=== PATIENT | female | born 1990 | race Hispanic/Latino ===

== ENCOUNTER 2020-05-27 17:14 | Emergency (ER) | payer BC, SELFPAY ==
--- NOTE | ~2020-05-27 | XR_ITS ---
EXAMINATION: XR chest 1V portable INDICATION: Shortness of breath, cough, exposure to COVID TECHNIQUE: Portable AP chest at 1815 hours COMPARISON: None available FINDINGS: There are minimal airspace opacities of the right lower lung zone. There is no pleural effu jeffrey or pneumothorax. The cardiomediastinal silhouette is normal. IMPRESSION: 1. Minimal airspace opacities of the right lung base, consistent with atelectasis versus pneumonia. Reviewed, dictated and finalized at location A. IMPRESSION: 1. Minimal airspace opacities of the right lung base, consistent with atelectas is versus pneumonia.
[2020-05-27 17:21] VITALS: BP 138/91; PULSE 92; RESP 15; TEMP 36.8; O2SAT 99
[2020-05-27 17:25] VITALS: PULSE 85
--- NOTE | 2020-05-27 17:37 | ED.SOB ---
HPI - SOB/Dyspnea General Chief Complaint: Shortness of Breath/Dyspnea Stated Complaint: sob Time Seen by Provider: 05/27/20 17:19 Source: patient Mode of arrival: ambulatory Limitations: no limitations History of Present Illness HPI Narrative: This is a 29 year old female that presents to the ER for shortness of breath x 3 days. Reports her brother was recently diagnosed with coronavirus. Reports mild congestion and cough. Also reports a tightness in her chest that has been constant for the last couple days. Denies fever. Related Data Allergies Allergy/AdvReac Type Severity Reaction Status Date / Time No Known Allergies Allergy Verified 05/27/20 17:26 Review of Systems Review of Systems: Narrative: CONSTITUTIONAL: Denies fever ENT: Reports congestion, sore throat CARDIOVASCULAR: Reports chest pain RESPIRATORY: Reports cough and dyspnea. All systems reviewed & are unremarkable except as noted in HPI and below PMFSH Social History Social History Smoking status: Never smoker Alcohol intake: current Exam Narrative: Exam Narrative: GENERAL: Well-appearing, obese, and in no acute distress. HEAD: Normocephalic, atraumatic. EYES: EOMI. ENT: Nares clear, no rhinorrhea or epistaxis. Mucous membranes moist. Oropharynx without tonsillar hypertrophy exudate or other lesions. Bilateral TMs pearly cotton non-bulging NECK: Supple. No adenopathy or masses. CHEST: Clear to auscultation. No respiratory distress. No wheezes rales or rhonchi HEART: Regular rate and rhythm. No murmur heard. Normal peripheral pulses. EXTREMITIES: Normal range of motion. No edema. SKIN: Warm, dry, no rash. NEURO: No focal deficits. Alert and oriented x3. PSYCH: Normal mood and affect Course Vital Signs Vital signs: Vital Signs Temperature 98.2 F 05/27/20 17:21 Pulse Rate 92 05/27/20 17:21 Respiratory Rate 15 05/27/20 17:21 Blood Pressure 138/91 H 05/27/20 17:21 Pulse Oximetry 99 05/27/20 17:21 Temperature 98.2 F 05/27/20 17:21 Pulse Rate 82 05/27/20 19:39 Respiratory Rate 22 H 05/27/20 19:39 Blood Pressure 123/80 06/26/20 19:39 Pulse Oximetry 99 05/27/20 19:39 MDM - SOB/Dyspnea MDM Narrative Medical decision making narrative: Patient presents the emergency department for cough and shortness of breath. Reports her brother was recently diagnosed with coronavirus. Patient is afebrile and nontoxic-appearing. Normal oxygen saturation on room air. CBC with mild leukocytosis to 13.4. Metabolic panel is without acute findings. D-dimer is not elevated. Troponin is negative. EKG without concerning changes. Chest x-ray with minimal airspace opacities in the right lung base. SARS-CoV-2 sent. Patient will be started on oral antibiotics. Oxygen saturation has remained normal on room air throughout visit in the ED. Patient stable and felt appropriate for further outpatient evaluation. She is to follow-up with her primary care doctor. She was given warnings to return to the ER Lab Data Attestation: I reviewed the patient's lab results. Result diagrams: 05/27/20 17:51 05/27/20 17:51 Labs: Lab Results 05/27/20 05/27/20 05/27/20 Range/Units 17:51 17:51 17:51 WBC 13.4 H (4.5-10.0) K/mm3 RBC 5.30 (4.2-5.4) M/mm3 Hgb 14.8 (12.0-15.0) g/dL Hct 43.5 (37.0-47.0) % MCV 82.1 (80-100) fl MCH 27.9 (26-34) pg MCHC 34.0 (32-36) g/dl RDW 12.7 (11.5-14.5) % Plt Count 231 (150-375) k/mm3 MPV 11.2 H (7.4-10.4) fl Immature Gran % (Auto) 0.5 (0-0.5) % Neut % (Auto) 61.2 (45.5-73.1) % Lymph % (Auto) 27.6 (18.3-44.2) % Miller % (Auto) 7.5 (2.6-8.5) % Eos % (Auto) 2.9 (0-4.4) % Baso % (Auto) 0.3 (0.2-1.2) % Lymph # (Auto) 3.70 H (0.9-3.2) K/mm3 Miller # (Auto) 1.0 H (0.1-0.6) K/mm3 Eos # (Auto) 0.4 H (0-0.3) K/mm3 Baso # (Auto) 0.0 (0.0-0.1) K/mm3 A
[2020-05-27 17:58] VITALS: BP 111/72; PULSE 90; RESP 18; O2SAT 99
[2020-05-27 18:00] LABS: Basophils Percent Auto 0.3 % (0.2-1.2); Eosinophils Absolute Auto 0.4 K/mm3 (0-0.3); Eosinophils Percent Auto 2.9 % (0-4.4); Hematocrit 43.5 % (37.0-47.0); Hemoglobin 14.8 g/dL (12.0-15.0); Immature Granulocyte Absolute 0.07 K/mm3 (0.00-0.031); Immature Granulocyte Percent A 0.5 % (0-0.5); Lymphocytes Percent Auto 27.6 % (18.3-44.2); Mean Corpuscular Hemoglobin 27.9 pg (26-34); Mean Corpuscular Volume 82.1 fl (80-100); Mean Platelet Volume 11.2 fl (7.4-10.4); Monocytes Percent Auto 7.5 % (2.6-8.5); Neutrophils Absolute Auto 8.2 K/mm3 (1.3-6.7); Neutrophils Percent Auto 61.2 % (45.5-73.1); Platelet Count Result 231 k/mm3 (150-375); Red Cell Distribution Width 12.7 % (11.5-14.5); White Blood Count 13.4 K/mm3 (4.5-10.0)
[2020-05-27 18:10] LABS: Lactic Acid Reflex 1.1 mmol/L (0.7-2.1)
[2020-05-27 18:14] LABS: Alanine Aminotransferase 24 U/L (4-35); Albumin Level 4.3 g/dL (3.5-5.1); Alkaline Phosphatase 99 U/L (38-126); Aspartate Amino Transferase 25 U/L (14-36); Bilirubin,Total 0.1 mg/dL (0.2-1.3); Blood Urea Nitrogen 13 mg/dL (7-17); CRP 1.8 mg/dL (<1.0); Calcium 9.1 mg/dL (8.4-10.2); Carbon Dioxide 25 mmol/L (22-30); Chloride 102 mmol/L (98-107); Estimated CRCL calculation 118 ml/min; Estimated Glomerular Filt Rate > 60; Glucose 133 mg/dL (65-105); Lactate Dehydrogenase 381 U/L (313-618); Potassium 3.9 mmol/L (3.4-5.0); Sodium 135 mmol/L (137-145)
[2020-05-27 18:23] LABS: Troponin I < 0.012 ng/mL (0.000-0.034)
[2020-05-27 18:24] LABS: D Dimer 0.27 ug/mL (<0.48)
--- NOTE | 2020-05-27 19:16 | ECG_ITS ---
Measurements Intervals [place] Rate: 79 P: 41 WV: 135 QRS: 0 QRSD: 77 T: 23 QT: 361 QTc: 416 Interpretive Statements SINUS RHYTHM VOLTAGE CRITERIA FOR LVH MINIMAL Q WAVES- HIGH LATERAL LEADS BORDERLINE ECG Electronically Signed On 05-28-2020 7:34:30 CDT by Jeyson Gurrola D.O.
[2020-05-27 19:39] VITALS: BP 123/80; PULSE 82; RESP 22; O2SAT 99
[2020-05-27 20:23] VITALS: BP 112/77; PULSE 101; RESP 29; O2SAT 98
[2020-05-28 13:53] LABS: SARS-CoV-2 RNA PCR Negative
== END 2020-05-27 20:24 | disposition home or self-care (01) ==
PROVIDERS: Physician Assistant; Emergency Provider Family Medicine; PCP Emergency Medicine
DX: J18.9 Pneumonia, unspecified organism (principal); Z20.828 Contact with and (suspected) exposure to other viral communicable diseases
CPT/HCPCS: 36415; 71045; 80053; 83605; 83615; 84484; 85025; 85380; 86140; 87635; 93005; 99284; C9803; U0003

== ENCOUNTER 2020-06-10 18:16 | Outpatient (CLI) | payer BC, OTHER, SELFPAY ==
--- NOTE | ~2020-06-10 | XR_ITS ---
EXAMINATION: XR chest 2V 06/10/2020 18:46 INDICATION: Cough and shortness of breath. History of pneumonia. PROCEDURE: 2 view chest COMPARISON: 05/27/2020 FINDINGS: The lungs are clear. The cardiomediastinal silhouette is within normal limits. There are no pleural effusions. There is no pneumothorax suspected. IMPRESSION: 1: NO ACUTE CARDIOPULMONARY DISEASE. Reviewed, dictated and finalized at location A.
== END 2020-06-10 18:17 | disposition home or self-care (01) ==
LOC: ANHIMG 18:20
PROVIDERS: PCP Emergency Medicine; Visit Provider Emergency Medicine
DX: R05 Cough (principal); R06.02 Shortness of breath; Z87.01 Personal history of pneumonia (recurrent)
CPT/HCPCS: 71046

== ENCOUNTER 2020-06-23 15:06 | Outpatient (CLI) | payer BC, OTHER, SELFPAY ==
[2020-06-23 15:23] LABS: Basophils Percent Auto 0.3 % (0.2-1.2); Eosinophils Absolute Auto 0.2 K/mm3 (0-0.3); Eosinophils Percent Auto 1.4 % (0-4.4); Hematocrit 40.7 % (37.0-47.0); Hemoglobin 13.8 g/dL (12.0-15.0); Immature Granulocyte Absolute 0.04 K/mm3 (0.00-0.031); Immature Granulocyte Percent A 0.4 % (0-0.5); Lymphocytes Absolute Auto 3.41 K/mm3 (0.9-3.2); Lymphocytes Percent Auto 32.5 % (18.3-44.2); Mean Corpuscular HGB Conc 33.9 g/dl (32-36); Mean Corpuscular Hemoglobin 27.5 pg (26-34); Mean Corpuscular Volume 81.2 fl (80-100); Mean Platelet Volume 11.4 fl (7.4-10.4); Monocytes Absolute Auto 0.7 K/mm3 (0.1-0.6); Monocytes Percent Auto 6.8 % (2.6-8.5); Neutrophils Absolute Auto 6.1 K/mm3 (1.3-6.7); Neutrophils Percent Auto 58.6 % (45.5-73.1); Platelet Count Result 234 k/mm3 (150-375); Red Blood Count 5.01 M/mm3 (4.2-5.4); Red Cell Distribution Width 12.4 % (11.5-14.5); White Blood Count 10.5 K/mm3 (4.5-10.0)
[2020-06-23 16:41] LABS: Alanine Aminotransferase 26 U/L (4-35); Albumin Level 4.5 g/dL (3.5-5.1); Alkaline Phosphatase 79 U/L (38-126); Anion Gap 14.5 mmol/L (7-16); Aspartate Amino Transferase 30 U/L (14-36); Bilirubin,Total 0.3 mg/dL (0.2-1.3); Blood Urea Nitrogen 17 mg/dL (7-17); CRP 2.5 mg/dL (<1.0); Calcium 9.7 mg/dL (8.4-10.2); Carbon Dioxide 22 mmol/L (22-30); Chloride 106 mmol/L (98-107); Estimated Glomerular Filt Rate > 60; Glucose 140 mg/dL (65-105); Potassium 3.5 mmol/L (3.4-5.0); Sodium 139 mmol/L (137-145)
[2020-06-23 16:44] LABS: Immunoglobulin A 289 mg/dL (70-400); Immunoglobulin G 1365 mg/dL (700-1600); Immunoglobulin M 87 mg/dL (40-230)
[2020-06-23 16:50] LABS: Erythrocyte Sedimentation Rate 17 mm/hr (0-20)
== END 2020-06-23 15:07 | disposition home or self-care (01) ==
PROVIDERS: PCP Emergency Medicine; Visit Provider Internal Medicine Hematology & Oncology
DX: D72.829 Elevated white blood cell count, unspecified (principal)
CPT/HCPCS: 36415; 80053; 82784; 85025; 85652; 86140; 88184

== ENCOUNTER 2020-11-11 08:38 | Emergency (ER) | payer OTHER, MEDICAID, SELFPAY ==
--- NOTE | ~2020-11-11 | US_ITS ---
EXAMINATION: US pelvic complete w TV DATE: 11/11/2020 11:44 INDICATION: Left ovarian cyst. TECHNIQUE: Multiple transabdominal and transvaginal sonographic images of the pelvis were obtained. COMPARISON: CT abdomen and pelvis 11/11/2020 FINDINGS: TRANSABDOMINAL ULTRASOUND: The uterus measures 9.0 x 3.3 x 3.2 cm. There is trace free fluid in the pelvis. TRANSVAGINAL ULTRASOUND: The endometrial complex measures 8 mm in thickness. The right ovary measures 2.0 x 2.0 x 1.9 cm. The left ovary measures 2.9 x 2.8 x 3.4 cm. There is a 2.6 cm dominant follicle in left ovary. There is normal vascular flow in the ovaries. IMPRESSION: 1. Normal pelvis. 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 [employer] IMPRESSION: 1. Normal pelvis.
--- NOTE | ~2020-11-11 | CT_ITS ---
EXAMINATION: CT abdomen pelvis w con DATE: 11/11/2020 10:55 INDICATION: Left abdominal pain. Blood in stool. TECHNIQUE: Computed tomography (CT) of the abdomen and pelvis was performed with 100 mL Omnipaque 350 intravenous contrast. Automated exposure control and iterative reconstruction technique were employe d. The dose-length product was 1293.56 mGy-cm. COMPARISON: CT abdomen and pelvis 02/26/2018 FINDINGS: The visualized portions of the lung bases are clear without pneumonia or pleural effusion. The heart size is normal. No pericardial effusion. The liver, gallbladder, spleen, pancreas, adrenal glands, and kidneys are normal. There is a 2.9 cm corpus luteum cyst in left ovary. There are no dila diana loops of bowel. The appendix is normal. There is trace pelvic ascites, likely physiologic. There are no pathologically enlarged lymph nodes. There is dextrocurvature of lumbar spine. IMPRESSION: 1. No specific etiology for the patient's symptoms. 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
[2020-11-11 08:43] VITALS: BP 120/79; PULSE 80; RESP 19; TEMP 37.3; O2SAT 98
[2020-11-11 09:02] LABS: Basophils Percent Auto 0.4 % (0.2-1.2); Eosinophils Absolute Auto 0.2 K/mm3 (0-0.3); Eosinophils Percent Auto 1.9 % (0-4.4); Hematocrit 42.9 % (37.0-47.0); Hemoglobin 14.8 g/dL (12.0-15.0); Immature Granulocyte Absolute 0.04 K/mm3 (0.00-0.031); Immature Granulocyte Percent A 0.4 % (0-0.5); Lymphocytes Absolute Auto 2.93 K/mm3 (0.9-3.2); Lymphocytes Percent Auto 26.4 % (18.3-44.2); Mean Corpuscular HGB Conc 34.5 g/dl (32-36); Mean Corpuscular Hemoglobin 28.5 pg (26-34); Mean Corpuscular Volume 82.5 fl (80-100); Mean Platelet Volume 10.9 fl (7.4-10.4); Monocytes Absolute Auto 0.7 K/mm3 (0.1-0.6); Monocytes Percent Auto 5.9 % (2.6-8.5); Neutrophils Absolute Auto 7.2 K/mm3 (1.3-6.7); Platelet Count Result 226 k/mm3 (150-375); Red Cell Distribution Width 12.5 % (11.5-14.5); White Blood Count 11.1 K/mm3 (4.5-10.0)
[2020-11-11 09:12] LABS: Prothrombin Time 13.6 Seconds (11.1-14.7)
[2020-11-11 09:13] LABS: Lipase 84 U/L (23-300)
[2020-11-11 09:13] LABS: Alanine Aminotransferase 34 U/L (4-35); Albumin Level 4.1 g/dL (3.5-5.1); Alkaline Phosphatase 81 U/L (38-126); Anion Gap 8 mmol/L (8-16); Aspartate Amino Transferase 31 U/L (14-36); Bilirubin,Total 0.5 mg/dL (0.2-1.3); Blood Urea Nitrogen 13 mg/dL (7-17); Calcium 8.8 mg/dL (8.4-10.2); Carbon Dioxide 24 mmol/L (22-30); Chloride 107 mmol/L (98-107); Estimated CRCL calculation 105 ml/min; Estimated Glomerular Filt Rate > 60; Glucose 101 mg/dL (65-105); Partial Thromboplastin Time 27.7 SECONDS (22.3-36.8); Potassium 4.3 mmol/L (3.4-5.0); Sodium 139 mmol/L (137-145)
[2020-11-11 09:17] LABS: Add Urine Microscopic? NO; Appearance Urine Clear (Clear); Bilirubin Urine Negative (Negative); Blood Urine Negative (Negative); Color Urine Yellow (Yellow); Glucose Urine UA Negative (Negative); Ketones Urine Negative (Negative); Leukocyte Esterase Ur Negative LEU/UL (Negative); Nitrate Urine Negative (Negative); Protein Urine Negative (Negative); Specific Grav Ur 1.017 (1.001-1.035); Urobilinogen Urine Negative mg/dL (<2.0)
--- NOTE | 2020-11-11 10:31 | ED.GIBLEED ---
HPI - GI Bleed General Chief complaint: GI Bleed Stated complaint: rectal bleeding Time Seen by Provider: 11/11/20 08:49 Source: patient Mode of arrival: ambulatory Limitations: no limitations History of Present Illness HPI Narrative: This is a 30 year old female that presents to the ER for blood in the stool x 5 days. Reports bright red blood with every bowel movement. Does report history of hemorrhoids. Reports she has had intermittent sharp abdominal pain on the left side. Denies fever, nausea, vomiting, diarrhea, or dysuria. Related Data Allergies Allergy/AdvReac Type Severity Reaction Status Date / Time No Known Allergies Allergy Verified 11/11/20 08:48 Review of Systems Review of Systems: Narrative: CONSTITUTIONAL: Denies fever GASTROINTESTINAL: Reports abdominal pain. Denies nausea, vomiting, or diarrhea. GENITOURINARY: Denies dysuria All systems reviewed & are unremarkable except as noted in HPI and below PMFSH Past Medical History Medical History (Updated 11/11/20 @ 12:02 by Diann Krishnan PA-C) Obesity, unspecified Residual hemorrhoidal skin tags Rhinitis, nonallergic Viral wart, unspecified Surgical History Surgical History No significant past surgical history Family History Family History Father Hypertension Family history of hearing loss Sibling Hypertension Mother Family history of malignant neoplasm Other Family history of arthritis Social History Social History Smoking status: Never smoker Alcohol intake: current Gender identity (if verbalized by the patient): Female Exam Narrative: Exam Narrative: GENERAL: Well-appearing, well-nourished, and in no acute distress. HEAD: Normocephalic, atraumatic. EYES: EOMI. CHEST: Clear to auscultation. No respiratory distress. No wheezes rales or rhonchi HEART: Regular rate and rhythm. No murmur heard. Normal peripheral pulses. ABDOMEN: Soft, nondistended, normal active bowel sounds. Tender to palpation in her left lower quadrant, without guarding. No CVA tenderness EXTREMITIES: Normal range of motion. No edema. SKIN: Warm, dry, no rash. NEURO: No focal deficits. Alert and oriented x3. PSYCH: Normal mood and affect RECTAL: No obvious external hemorrhoids or fissures. Hemoccult negative Course Vital Signs Vital signs: Vital Signs Temperature 99.1 F 11/11/20 08:43 Pulse Rate 80 11/11/20 08:43 Respiratory Rate 19 11/11/20 08:43 Blood Pressure 120/79 11/11/20 08:43 Pulse Oximetry 98 11/11/20 08:43 Temperature 99.1 F 11/11/20 08:43 Pulse Rate 80 11/11/20 08:43 Respiratory Rate 19 11/11/20 08:43 Blood Pressure 120/79 11/11/20 08:43 Pulse Oximetry 98 11/11/20 08:43 MDM - GI Bleed MDM Narrative Medical decision making narrative: Patient presents the emergency department for hematochezia x5 days. She is afebrile and nontoxic-appearing. Vitals are stable. Was also reporting some intermittent left-sided crampy lower abdominal pain. CBC with mild leukocytosis to 11.1. Metabolic panel without concerning findings. UA is normal. Bedside test is negative. CT scan of the abdomen and pelvis is without acute findings. Pelvic ultrasound is also without acute findings. Normal vascular flow to the ovary. Patient was updated on case findings. Does report history of hemorrhoids. Will be started on Anusol suppositories. She is to follow-up with GI. She was given warnings to return to the ER Lab Data Attestation: I reviewed the patient's lab results. Result diagrams: 11/11/20 08:56 11/11/20 08:56 Labs: Lab Results 11/11/20 11/11/20 11/11/20 Range/Units 08:56 08:56 08:56 WBC 11.1 H (4.5-10.0) K/mm3 RBC 5.20 (4.2-5.4) M/mm3 Hgb 14.8 (12.0-15.0) g/dL Hct 42.9 (37.0-47.0) % MC
[2020-11-11 12:16] VITALS: BP 138/84; PULSE 84; RESP 16; O2SAT 98
== END 2020-11-11 12:16 | disposition home or self-care (01) ==
PROVIDERS: Emergency Provider Emergency Medicine; PCP Emergency Medicine
DX: K92.1 Melena (principal); E66.9 Obesity, unspecified; Z68.25 Body mass index [BMI] 25.0-25.9, adult
CPT/HCPCS: 36415; 74177; 76830; 76856; 80053; 81003; 81025; 83690; 85025; 85610; 85730; 99284; Q9967

== ENCOUNTER 2021-01-09 13:28 | Emergency (ER) | payer OTHER, MEDICAID, SELFPAY ==
[2021-01-09] VITALS (25 sets, daily range): BP systolic 117–152; BP diastolic 65–99; PULSE 84–107; RESP 11–29; TEMP 36.4; O2SAT 95–100
--- NOTE | ~2021-01-09 | XR_ITS ---
EXAMINATION: XR chest 1V portable 01/09/2021 14:20 INDICATION: Cough PROCEDURE: AP portable chest COMPARISON: 06/10/2020 FINDINGS: The lungs are clear. The cardiomediastinal silhouette is within normal limits. There are no pleural effusions. There is no pneumothorax suspected. IMPRESSION: 1: NO ACUTE CARDIOPULMONARY DISEASE. 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 INE EDITOR
--- NOTE | ~2021-01-09 | CT_ITS ---
EXAMINATION: CT brain wo con DATE: 01/09/2021 15:08 INDICATION: Migraine headache. TECHNIQUE: Computed tomography (CT) of the head was performed without intravenous contrast. The mA wa s adjusted according to patient size. Iterative reconstruction technique was employed. The dose-lengt h product was 605.33 mGy-cm. COMPARISON: None FINDINGS: There is no intracranial hemorrhage, acute infarction, or abnormal intracranial mass lesion . The ventricles are normal in size. The paranasal sinuses are clear. The orbits are normal. The mast oid air cells are normal. IMPRESSION: 1. Normal brain. Reviewed, dictated and finalized at location A. DE CUISINE IMPRESSION: 1. Normal brain.
--- NOTE | 2021-01-09 13:42 | ECG_ITS ---
Measurements Intervals [place] Rate: 98 P: 39 VT: 104 QRS: -9 QRSD: 89 T: 36 QT: 293 QTc: 374 Interpretive Statements SINUS RHYTHM WITH SHORT VT INTERVAL POSSIBLE LEFT ATRIAL ENLARGEMENT DELAYED PRECORDIAL R/S TRANSITION POSSIBLE LEFT VENTRICULAR HYPERTROPHY BASELINE WANDER- II, III, AVR, AVL, AVF, V1-V2, V4 BORDERLINE ECG Electronically Signed On 01-09-2021 13:51:00 TECHNOLOGY INFUSION SPECIALIST by Jeyson Gurrola D.O.
--- NOTE | 2021-01-09 14:16 | ED.URI ---
HPI - URI/Sore Throat General Chief Complaint: Upper Respiratory Infection Stated Complaint: chest pain, sob Time Seen by Provider: 01/09/21 13:47 Source: patient Mode of arrival: ambulatory Limitations: no limitations History of Present Illness HPI Narrative: This is a 30 year old female that presents to the ER for chest pain and shortness of breath x 1 week. Associated with congestion and sinus pain. Reports associated migraines that she has been having over the last year. She was seen at urgent care for this 2 days ago and started on Augmentin for an ear infection. Reports she had a rapid negative covid at that time. Denies fever, sore throat, or lower extremity edema. Related Data Home Medications Medication Instructions Recorded Confirmed albuterol sulfate [Ventolin HFA] INHALATION 01/09/21 amoxicillin-pot clavulanate tablet 01/09/21 01/09/21 benzonatate mg PO 01/09/21 nystatin TOPICAL 01/09/21 Allergies Allergy/AdvReac Type Severity Reaction Status Date / Time No Known Allergies Allergy Verified 01/09/21 13:57 Review of Systems Review of Systems: Narrative: CONSTITUTIONAL: Denies fever ENT: Reports rhinorrhea, congestion. Denies sore throat CARDIOVASCULAR: Reports chest pain RESPIRATORY: Reports cough and dyspnea. NEUROLOGIC: Denies headache, numbness, or weakness. All systems reviewed & are unremarkable except as noted in HPI and below PMFSH Past Medical History Medical History (Updated 01/09/21 @ 16:21 by Diann Krishnan PA-C) Hemorrhoid Obesity, unspecified Rectal bleeding Residual hemorrhoidal skin tags Rhinitis, nonallergic Viral wart, unspecified Surgical History Surgical History No significant past surgical history Family History Family History Father Hypertension Family history of hearing loss Sibling Hypertension Mother Family history of malignant neoplasm Other Family history of arthritis Social History Social History Smoking status: Never smoker Alcohol intake: current Gender identity (if verbalized by the patient): Female Exam Narrative: Exam Narrative: GENERAL: Well-appearing, well-nourished, and in no acute distress. HEAD: Normocephalic, atraumatic. EYES: PERRLA and EOMI. ENT: Nares clear, no rhinorrhea or epistaxis. Mucous membranes moist. Oropharynx without tonsillar hypertrophy exudate or other lesions. Bilateral TMs pearly cotton non-bulging NECK: Supple. No adenopathy or masses. CHEST: Clear to auscultation. No respiratory distress. No wheezes rales or rhonchi HEART: Regular rate and rhythm. No murmur heard. Normal peripheral pulses. EXTREMITIES: Normal range of motion. No edema. Strength equal in bilateral upper and lower extremities (5/5) SKIN: Warm, dry, no rash. NEURO: No focal deficits. Alert and oriented x3. cN II-XII grossly intact PSYCH: Normal mood and affect Course Vital Signs Vital signs: Vital Signs Temperature 97.5 F L 01/09/21 13:37 Pulse Rate 107 H 01/09/21 13:37 Respiratory Rate 20 01/09/21 13:37 Blood Pressure 152/99 H 01/09/21 13:37 Pulse Oximetry 100 01/09/21 13:37 Temperature 97.5 F L 01/09/21 13:37 Pulse Rate 103 H 01/09/21 14:01 Respiratory Rate 24 H 01/09/21 14:01 Blood Pressure 130/82 01/09/21 14:01 Pulse Oximetry 98 01/09/21 14:01 MDM - URI/Sore Throat MDM Narrative Medical decision making narrative: Patient presents to the emergency department for chest pain and shortness of breath noted over the last week. Was also reporting cold symptoms. She is afebrile and nontoxic-appearing. Mildly tachycardic upon arrival, this normalized without intervention. CBC with mild leukocytosis to 13.8, this appears to be chronic for patient. Reports she has been evaluated for this before. Metabolic panel without concerning findings.
[2021-01-09 14:31] LABS: Basophils Percent Auto 0.2 % (0.2-1.2); Eosinophils Absolute Auto 0.2 K/mm3 (0-0.3); Eosinophils Percent Auto 1.2 % (0-4.4); Hematocrit 45.3 % (37.0-47.0); Hemoglobin 15.9 g/dL (12.0-15.0); Immature Granulocyte Absolute 0.05 K/mm3 (0.00-0.031); Immature Granulocyte Percent A 0.4 % (0-0.5); Lymphocytes Absolute Auto 2.79 K/mm3 (0.9-3.2); Lymphocytes Percent Auto 20.2 % (18.3-44.2); Mean Corpuscular HGB Conc 35.1 g/dl (32-36); Mean Corpuscular Hemoglobin 28.4 pg (26-34); Mean Platelet Volume 10.9 fl (7.4-10.4); Monocytes Absolute Auto 0.6 K/mm3 (0.1-0.6); Monocytes Percent Auto 4.2 % (2.6-8.5); Neutrophils Absolute Auto 10.2 K/mm3 (1.3-6.7); Neutrophils Percent Auto 73.8 % (45.5-73.1); Platelet Count Result 249 k/mm3 (150-375); Red Blood Count 5.59 M/mm3 (4.2-5.4); Red Cell Distribution Width 12.3 % (11.5-14.5); White Blood Count 13.8 K/mm3 (4.5-10.0)
[2021-01-09 14:44] LABS: Prothrombin Time 13.3 Seconds (11.1-14.7)
[2021-01-09 14:45] LABS: Partial Thromboplastin Time 27.5 SECONDS (22.3-36.8)
[2021-01-09 14:48] LABS: D Dimer 0.27 ug/mL (<0.48)
[2021-01-09 15:12] LABS: Alanine Aminotransferase 25 U/L (4-35); Albumin Level 4.5 g/dL (3.5-5.1); Alkaline Phosphatase 81 U/L (38-126); Anion Gap 10 mmol/L (8-16); Aspartate Amino Transferase 29 U/L (14-36); Bilirubin,Total 0.5 mg/dL (0.2-1.3); Blood Urea Nitrogen 14 mg/dL (7-17); Calcium 9.2 mg/dL (8.4-10.2); Carbon Dioxide 23 mmol/L (22-30); Chloride 105 mmol/L (98-107); Estimated CRCL calculation 154 ml/min; Estimated Glomerular Filt Rate > 60; Glucose 182 mg/dL (65-105); Lactate Dehydrogenase 372 U/L (313-618); Potassium 3.7 mmol/L (3.4-5.0); Sodium 138 mmol/L (137-145)
[2021-01-09 16:07] LABS: Troponin I < 0.012 ng/mL (0.000-0.034)
[2021-01-09 23:24] LABS: SARS-CoV-2 RNA PCR Negative
== END 2021-01-09 16:42 | disposition home or self-care (01) ==
PROVIDERS: Physician Assistant; Emergency Provider Emergency Medicine; PCP Emergency Medicine
DX: R07.9 Chest pain, unspecified (principal); R06.02 Shortness of breath; Z20.822 Contact with and (suspected) exposure to COVID-19; E66.9 Obesity, unspecified; Z68.38 Body mass index [BMI] 38.0-38.9, adult
CPT/HCPCS: 36415; 70450; 71045; 80053; 82728; 83615; 84484; 85025; 85380; 85610; 85730; 87804; 93005; 99284; C9803; U0003; U0005

== ENCOUNTER 2021-01-22 15:23 | Emergency (ER) | payer OTHER, MEDICAID, SELFPAY ==
--- NOTE | ~2021-01-22 | CT_ITS ---
EXAMINATION: CT abdomen pelvis w con EXAM DATE: 01/22/2021 17:57 INDICATION: Left lower quadrant pain. TECHNIQUE: Spiral CT of the abdomen and pelvis was performed following intravenous injection of 100 m L Omnipaque 350. Axial, coronal and sagittal images were reviewed. The dose-length product (DLP) fo r this examination was 1260.95 mGy-cm. The exposure was tailored according to patient size (auto mA exposure control), and iterative reconstruction (ASIR) was used as additional dose reduction techniqu e. Comparison is made to prior examination from 11/11/2020. FINDINGS: The liver, spleen, adrenal glands and pancreas are unremarkable. Gallbladder is unremarkab le. No biliary obstruction. Portal and splenic veins are patent. Kidneys enhance symmetrically. T here is no hydronephrosis. The uterus and ovaries are unremarkable, no adnexal mass. The bladder i s collapsed at time of imaging limiting evaluation. There is no retroperitoneal or pelvic lymphadeno arline. The appendix is normal. The stomach and small bowel are unremarkable. There is expected amount of c olonic stool. No free intraperitoneal gas. The heart is normal in size. There are no pericardial or pleural effusions. The lung bases are unremarkable. There are no osteoblastic or osteolytic les ions identified. IMPRESSION: 1. No acute intra-abdominal findings. 0 Reviewed, dictated and finalized at location A. OR RESEARCH SCIENTIST
[2021-01-22 15:26] VITALS: BP 118/86; PULSE 88; RESP 20; TEMP 36.1; O2SAT 97
--- NOTE | 2021-01-22 16:16 | ED.ABDPAIN ---
HPI - Abdominal Pain General Chief Complaint: Abdominal Pain Stated Complaint: abdominal pain Time Seen by Provider: 01/22/21 15:32 Source: patient Mode of arrival: ambulatory Limitations: no limitations History of Present Illness HPI narrative: A 30-year-old female comes into the emergency department today with complaints of pain in her abdomen. Patient states that she feels it primarily over on the left-hand side. Patient states her symptoms started with painful urination, burning and frequency of urine. She states that this now has gone up to her left side. Patient is concerned she may have a kidney infection. Related Data Home Medications Medication Instructions Recorded Confirmed fluticasone propionate INTRANASAL 01/22/21 Allergies Allergy/AdvReac Type Severity Reaction Status Date / Time No Known Allergies Allergy Verified 01/22/21 15:28 Review of Systems Review of Systems: Narrative: CONSTITUTIONAL: Denies fever, chills, or sweats. EYES: Denies visual changes, redness, or discharge. ENT: Denies rhinorrhea, congestion, sore throat, or otalgia. CARDIOVASCULAR: Denies chest pain, palpitations, or edema. RESPIRATORY: Denies cough or dyspnea. GASTROINTESTINAL: Denies abdominal pain, nausea, vomiting, or diarrhea. GENITOURINARY: Endorses dysuria, hematuria and flank pain. SKIN: Denies rash or itching. MUSCULOSKELETAL: Denies back pain, joint pain, or myalgia. NEUROLOGIC: Denies headache, numbness, dizziness, or weakness. PSYCHIATRIC: Denies anxiety or depression. [facility] Past Medical History Medical History Hemorrhoid Obesity, unspecified Rectal bleeding Residual hemorrhoidal skin tags Rhinitis, nonallergic Viral wart, unspecified Surgical History Surgical History No significant past surgical history Family History Family History Father Hypertension Family history of hearing loss Sibling Hypertension Mother Family history of malignant neoplasm Other Family history of arthritis Social History Social History Smoking status: Never smoker Alcohol intake: current Gender identity (if verbalized by the patient): Female Exam Narrative: Exam Narrative: GENERAL: Well-appearing, well-nourished, and in no acute distress. HEAD: Normocephalic, atraumatic. EYES: PERRLA and EOMI. ENT: Nares clear, no rhinorrhea or epistaxis. Mucous membranes moist. NECK: Supple. No adenopathy or masses. No carotid bruits or JVD CHEST: Clear to auscultation. No respiratory distress. No wheezes rales or rhonchi HEART: Regular rate and rhythm. No murmur heard. Normal peripheral pulses. ABDOMEN: Soft, nondistended, normal active bowel sounds. TTP to LUQ and LLQ. Positive Tramaine's punch on the left. CVA tenderness. EXTREMITIES: Normal range of motion. No edema. SKIN: Warm, dry, no rash. NEURO: No focal deficits. Alert and oriented x3. PSYCH: Normal mood and affect. Course Reevaluation(s) Reevaluation #1: Reevaluated patient provided care update. She is resting comfortably, notes that she is feeling somewhat better. We will plan for discharge at this time. Time: 18:09 Vital Signs Vital signs: Vital Signs Temperature 36.1 C L 01/22/21 15:26 Pulse Rate 88 01/22/21 15:26 Respiratory Rate 20 01/22/21 15:26 Blood Pressure 118/86 01/22/21 15:26 Pulse Oximetry 97 01/22/21 15:26 Temperature 36.1 C L 01/22/21 15:26 Pulse Rate 88 01/22/21 15:26 Respiratory Rate 20 01/22/21 15:26 Blood Pressure 118/86 01/22/21 15:26 Pulse Oximetry 97 01/22/21 15:26 MDM - Abdominal Pain MDM Narrative Medical decision making narrative: In brief this 30-year-old female came into the emergency department with complaints of abdominal pain, dysuria and frequency of urination. On exam she d
[2021-01-22] MEDS: ONDANSETRON INJ 4 MG/2 ML VIAL IV PUSH (16:32)
[2021-01-22] MEDS: KETOROLAC 30 MG/ML VIAL (*BKC) 15 MG IV PUSH (16:33)
[2021-01-22] MEDS: MORPHINE SULFATE (*CRX) 4 MG/ML INJ IV PUSH (16:34)
[2021-01-22 16:41] LABS: Basophils Absolute Auto 0.1 K/mm3 (0.0-0.1); Basophils Percent Auto 0.3 % (0.2-1.2); Eosinophils Absolute Auto 0.2 K/mm3 (0-0.3); Eosinophils Percent Auto 1.3 % (0-4.4); Hematocrit 42.2 % (37.0-47.0); Hemoglobin 14.5 g/dL (12.0-15.0); Immature Granulocyte Absolute 0.08 K/mm3 (0.00-0.031); Immature Granulocyte Percent A 0.5 % (0-0.5); Lymphocytes Absolute Auto 3.66 K/mm3 (0.9-3.2); Lymphocytes Percent Auto 23.3 % (18.3-44.2); Mean Corpuscular HGB Conc 34.4 g/dl (32-36); Mean Corpuscular Hemoglobin 27.9 pg (26-34); Mean Corpuscular Volume 81.3 fl (80-100); Monocytes Absolute Auto 0.9 K/mm3 (0.1-0.6); Monocytes Percent Auto 5.8 % (2.6-8.5); Neutrophils Absolute Auto 10.8 K/mm3 (1.3-6.7); Neutrophils Percent Auto 68.8 % (45.5-73.1); Platelet Count Result 266 k/mm3 (150-375); Red Blood Count 5.19 M/mm3 (4.2-5.4); Red Cell Distribution Width 12.4 % (11.5-14.5); White Blood Count 15.7 K/mm3 (4.5-10.0)
[2021-01-22 16:47] LABS: Add Urine Microscopic? YES; Appearance Urine Cloudy (Clear); Bacteria Urine Trace /hpf; Bilirubin Urine Negative (Negative); Blood Urine 1+ (Negative); Color Urine Yellow (Yellow); Glucose Urine UA Negative (Negative); Ketones Urine Negative (Negative); Leukocyte Esterase Ur 3+ LEU/UL (Negative); Mucus Urine Rare /lpf; Nitrate Urine Negative (Negative); Protein Urine 2+ mg/dL (Negative); RBC Urine 21-50 /hpf (0-2); Specific Grav Ur 1.023 (1.001-1.035); Squamous Epithelial Cell Urine Many /hpf (Few); Urobilinogen Urine Negative mg/dL (<2.0); WBC Urine >75 /hpf
[2021-01-22 16:54] LABS: Alanine Aminotransferase 23 U/L (4-35); Albumin Level 4.2 g/dL (3.5-5.1); Alkaline Phosphatase 91 U/L (38-126); Anion Gap 8 mmol/L (8-16); Aspartate Amino Transferase 25 U/L (14-36); Bilirubin,Total 0.4 mg/dL (0.2-1.3); Blood Urea Nitrogen 15 mg/dL (7-17); Calcium 9.1 mg/dL (8.4-10.2); Carbon Dioxide 25 mmol/L (22-30); Chloride 107 mmol/L (98-107); Estimated CRCL calculation 122 ml/min; Estimated Glomerular Filt Rate > 60; Glucose 99 mg/dL (65-105); Lipase 96 U/L (23-300); Potassium 3.7 mmol/L (3.4-5.0); Sodium 140 mmol/L (137-145)
== END 2021-01-22 18:21 | disposition home or self-care (01) ==
PROVIDERS: Emergency Provider Emergency Medicine; PCP Emergency Medicine
DX: N10 Acute pyelonephritis (principal); E66.9 Obesity, unspecified; Z68.41 Body mass index [BMI] 40.0-44.9, adult
CPT/HCPCS: 36415; 74177; 80053; 81001; 83690; 85025; 87077; 87086; 87088; 87186; 96374; 96375; 99284; A9270; J1885; J2270; J2405; Q9967

== ENCOUNTER 2021-01-24 17:12 | Emergency (ER) | payer OTHER, MEDICAID, SELFPAY ==
--- NOTE | ~2021-01-24 | CT_ITS ---
EXAMINATION: CT abdomen pelvis w con EXAM DATE: 01/25/2021 00:39 INDICATION: Flank pain, abdominal pain. TECHNIQUE: Spiral CT of the abdomen and pelvis was performed following intravenous injection of 100 m L Omnipaque 350. Axial, coronal and sagittal images were reviewed. The dose-length product (DLP) fo r this examination was 1165.90 mGy-cm. The exposure was tailored according to patient size (auto mA exposure control), and iterative reconstruction (ASIR) was used as additional dose reduction techniqu e. Comparison is made to prior examination from 01/22/2021. FINDINGS: The liver, spleen, adrenal glands and pancreas are unremarkable. Gallbladder is unremarkab le. No biliary obstruction. Portal and splenic veins are patent. Kidneys enhance symmetrically. T here is no hydronephrosis. The uterus is unremarkable. The bladder is unremarkable. There is no retroperitoneal or pelvic lymphadenopathy. The appendix is normal. The stomach and small bowel are unremarkable. There is expected amount of c olonic stool. No free intraperitoneal gas. The heart is normal in size. There are no pericardial or pleural effusions. The lung bases are unremarkable. Several punctate pelvic bone islands. IMPRESSION: 1. No acute intra-abdominal findings. 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
[2021-01-24 17:31] VITALS: BP 146/98; PULSE 80; RESP 20; TEMP 36.2; O2SAT 99
[2021-01-24 17:55] LABS: Basophils Absolute Auto 0.1 K/mm3 (0.0-0.1); Basophils Percent Auto 0.5 % (0.2-1.2); Eosinophils Absolute Auto 0.2 K/mm3 (0-0.3); Eosinophils Percent Auto 1.5 % (0-4.4); Hematocrit 44.8 % (37.0-47.0); Hemoglobin 15.1 g/dL (12.0-15.0); Immature Granulocyte Absolute 0.04 K/mm3 (0.00-0.031); Immature Granulocyte Percent A 0.4 % (0-0.5); Lymphocytes Percent Auto 32.4 % (18.3-44.2); Mean Corpuscular HGB Conc 33.7 g/dl (32-36); Mean Corpuscular Hemoglobin 27.7 pg (26-34); Mean Corpuscular Volume 82.1 fl (80-100); Mean Platelet Volume 10.8 fl (7.4-10.4); Monocytes Absolute Auto 0.6 K/mm3 (0.1-0.6); Monocytes Percent Auto 5.6 % (2.6-8.5); Neutrophils Absolute Auto 6.6 K/mm3 (1.3-6.7); Neutrophils Percent Auto 59.6 % (45.5-73.1); Platelet Count Result 257 k/mm3 (150-375); Red Blood Count 5.46 M/mm3 (4.2-5.4); Red Cell Distribution Width 12.3 % (11.5-14.5); White Blood Count 11.1 K/mm3 (4.5-10.0)
[2021-01-24 18:01] LABS: Add Urine Microscopic? YES; Appearance Urine Clear (Clear); Bilirubin Urine Negative (Negative); Blood Urine Negative (Negative); Color Urine Amber (Yellow); Glucose Urine UA Negative (Negative); Ketones Urine Negative (Negative); Leukocyte Esterase Ur Negative LEU/UL (Negative); Nitrate Urine Positive (Negative); Protein Urine Negative (Negative); Specific Grav Ur 1.006 (1.001-1.035)
[2021-01-24 18:08] LABS: Anion Gap 7 mmol/L (8-16); Blood Urea Nitrogen 8 mg/dL (7-17); Calcium 9.2 mg/dL (8.4-10.2); Carbon Dioxide 29 mmol/L (22-30); Chloride 103 mmol/L (98-107); Estimated CRCL calculation 113 ml/min; Estimated Glomerular Filt Rate > 60; Glucose 103 mg/dL (65-105); Sodium 139 mmol/L (137-145)
[2021-01-24 19:17] VITALS: BP 121/97; PULSE 90; RESP 23; TEMP 36.1; O2SAT 97
--- NOTE | 2021-01-24 21:29 | ED.ABDPAIN ---
HPI - Abdominal Pain General Chief Complaint: Urogenital-Female Stated Complaint: kidney infection Time Seen by Provider: 01/24/21 21:03 Source: patient Mode of arrival: ambulatory Limitations: no limitations History of Present Illness HPI narrative: A 30-year-old [facility] of [facility] pain in her upper abdomen. Patient was recently seen here for pyelonephritis. Patient states that the pain she is feeling is similar but seems to have progressed. She does note that her urine has improved since starting the antibiotics. She states that the pain feels like a cramping stabbing pain. Patient denies any nausea or vomiting. Patient does endorse some diarrhea this to the anti-biotic use. Related Data Home Medications Medication Instructions Recorded Confirmed fluticasone propionate INTRANASAL 01/22/21 Allergies Allergy/AdvReac Type Severity Reaction Status Date / Time No Known Allergies Allergy Verified 01/22/21 15:28 Review of Systems Review of Systems: Narrative: CONSTITUTIONAL: Denies fever, chills, or sweats. EYES: Denies visual changes, redness, or discharge. ENT: Denies rhinorrhea, congestion, sore throat, or otalgia. CARDIOVASCULAR: Denies chest pain, palpitations, or edema. RESPIRATORY: Denies cough or dyspnea. GASTROINTESTINAL: Denies nausea, vomiting. Endorses generalized abdominal pain and diarrhea GENITOURINARY: Denies dysuria or hematuria. SKIN: Denies rash or itching. MUSCULOSKELETAL: Denies back pain, joint pain, or myalgia. NEUROLOGIC: Denies headache, numbness, dizziness, or weakness. PSYCHIATRIC: Denies anxiety or depression. [facility] Past Medical History Medical History Hemorrhoid Obesity, unspecified Rectal bleeding Residual hemorrhoidal skin tags Rhinitis, nonallergic Viral wart, unspecified Surgical History Surgical History No significant past surgical history Family History Family History Father Hypertension Family history of hearing loss Sibling Hypertension Mother Family history of malignant neoplasm Other Family history of arthritis Social History Social History Smoking status: Never smoker Alcohol intake: current Gender identity (if verbalized by the patient): Female Exam Narrative: Exam Narrative: GENERAL: Well-appearing, well-nourished, and in no acute distress. HEAD: Normocephalic, atraumatic. EYES: PERRLA and EOMI. ENT: Nares clear, no rhinorrhea or epistaxis. Mucous membranes moist. NECK: Supple. No adenopathy or masses. No carotid bruits or JVD CHEST: Clear to auscultation. No respiratory distress. No wheezes rales or rhonchi HEART: Regular rate and rhythm. No murmur heard. Normal peripheral pulses. ABDOMEN: Soft, nondistended, normal active bowel sounds. Generalized tenderness palpation. EXTREMITIES: Normal range of motion. No edema. SKIN: Warm, dry, no rash. NEURO: No focal deficits. Alert and oriented x3. PSYCH: Normal mood and affect. Course Course Emergency Course: Had a discussion with the patient regarding her pain. Informed her that her laboratory data appears improved from the previous visit. Urine appears clear to on infection. Patient did indicate that her pain was still continued. It is possible that this is secondary to irritation/GI upset from her antibiotic. Discussed whether or not to perform another CT, patient elected to forego this for now in favor of pain medication. Reevaluation(s) Reevaluation #1: Patient was sleeping comfortably. Gently woke her and informed her of her normal CT scan. Patient states that her pain has improved. After discussion with the patient we do feel that this is likely secondary to a reaction from the antibiotic she was prescribed here t
[2021-01-24] MEDS: KETOROLAC (*BKC) 60 MG/2 ML VIAL IM (21:52)
[2021-01-24] MEDS: HYDROcodone/acetaminophen (*CRX) 5-325 MG TABLET 1 TAB PO (21:53)
[2021-01-25 01:39] VITALS: BP 100/61; PULSE 72; RESP 16; O2SAT 96
== END 2021-01-25 01:43 | disposition home or self-care (01) ==
PROVIDERS: Emergency Medicine; Emergency Provider Emergency Medicine; PCP Emergency Medicine
DX: R10.84 Generalized abdominal pain (principal); T36.95XA Adverse effect of unspecified systemic antibiotic, initial encounter; E66.9 Obesity, unspecified; Z68.38 Body mass index [BMI] 38.0-38.9, adult
CPT/HCPCS: 36415; 74177; 80048; 81001; 81025; 85025; 96372; 99284; A9270; J1885; Q9967

== ENCOUNTER → 2021-02-03 14:20 | Outpatient (CLI) | payer OTHER, MEDICAID, SELFPAY ==
--- NOTE | ~2021-02-03 | US_ITS ---
EXAMINATION: US pelvic complete DATE: 02/03/2021 14:51 INDICATION: Flank pain. TECHNIQUE: Multiple transabdominal and endovaginal sonographic images of the pelvis were obtained. COMPARISON: Pelvic ultrasound dated 11/11/[address] dated 01/25/2021 FINDINGS: The uterus measures 8.0 x 3.0 x 3.8 cm. The endometrial complex measures 4 mm in thickness. The righ t ovary measures 3.1 x 2.3 x 3.1 cm. 1.9 cm anechoic cyst/follicle at the right ovary. The left ovary measures 3.3 x 1.3 x 3.3 cm. Vascular flow at both ovaries on color Doppler. There is no free fluid in the pelvis. IMPRESSION: 1. Normal pelvic ultrasound. 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
--- NOTE | ~2021-02-03 | US_ITS ---
EXAMINATION: US renal BI DATE: 02/03/2021 14:51 INDICATION: Flank pain. TECHNIQUE: Multiple ultrasound grayscale images of the kidneys were obtained. COMPARISON: None. FINDINGS: The right kidney measures 11.3 x 5.3 x 6.1 cm. The left kidney measures 11.4 x 6.4 x 5.4 cm. The kidn eys demonstrate normal echogenicity. There is no hydronephrosis in either kidney. No stones identifi ed. The bladder is normal. IMPRESSION: 1. Normal kidneys without hydronephrosis. 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
== END ==
PROVIDERS: PCP Emergency Medicine; Visit Provider Emergency Medicine
DX: R10.9 Unspecified abdominal pain (principal)
CPT/HCPCS: 76775; 76856

== ENCOUNTER 2022-10-23 17:07 | Emergency (ER) | payer BC, SELFPAY ==
[2022-10-23 17:11] VITALS: BP 148/78; PULSE 97; RESP 18; TEMP 36.6; O2SAT 99
[2022-10-23 17:44] LABS: Basophils Percent Auto 0.2 % (0.2-1.2); Eosinophils Absolute Auto 0.1 K/mm3 (0-0.3); Hematocrit 44.8 % (37.0-47.0); Hemoglobin 15.2 g/dL (12.0-15.0); Immature Granulocyte Absolute 0.04 K/mm3 (0.00-0.031); Immature Granulocyte Percent A 0.3 % (0-0.5); Lymphocytes Absolute Auto 1.99 K/mm3 (0.9-3.2); Lymphocytes Percent Auto 16.4 % (18.3-44.2); Mean Corpuscular HGB Conc 33.9 g/dl (32-36); Mean Corpuscular Volume 82.5 fl (80-100); Mean Platelet Volume 10.8 fl (7.4-10.4); Monocytes Percent Auto 8.3 % (2.6-8.5); Neutrophils Percent Auto 73.8 % (45.5-73.1); Platelet Count Result 235 k/mm3 (150-375); Red Blood Count 5.43 M/mm3 (4.2-5.4); Red Cell Distribution Width 12.7 % (11.5-14.5); White Blood Count 12.1 K/mm3 (4.5-10.0)
[2022-10-23 17:48] LABS: Appearance Urine Clear (Clear); Bilirubin Urine Negative (Negative); Blood Urine Negative (Negative); Color Urine Yellow (Yellow); Glucose Urine UA Negative (Negative); Ketones Urine Negative (Negative); Leukocyte Esterase Ur Negative LEU/UL (Negative); Nitrate Urine Negative (Negative); Protein Urine Negative (Negative); Urobilinogen Urine 0.2 mg/dL (<2.0)
[2022-10-23 17:53] LABS: Alanine Aminotransferase 31 U/L (6-35); Albumin Level 4.5 g/dL (3.5-5.1); Alkaline Phosphatase 95 U/L (38-126); Anion Gap 7 mmol/L (8-16); Aspartate Amino Transferase 27 U/L (14-36); Bilirubin,Total 0.5 mg/dL (0.2-1.3); Blood Urea Nitrogen 12 mg/dL (7-17); Calcium 8.8 mg/dL (8.4-10.2); Carbon Dioxide 23 mmol/L (22-30); Chloride 105 mmol/L (98-107); Estimated CRCL calculation 109 ml/min; Estimated Glomerular Filt Rate > 60; Glucose 111 mg/dL (65-110); Lipase 121 U/L (23-300); Potassium 3.9 mmol/L (3.4-5.0); Sodium 135 mmol/L (137-145)
[2022-10-23 18:11] LABS: Bacteria Urine Trace /hpf; Mucus Urine Rare /lpf; RBC Urine 0-2 /hpf (0-2); Squamous Epithelial Cell Urine Rare /hpf (Few); WBC Urine 0-3 /hpf
[2022-10-23 18:20] LABS: Add Urine Microscopic? NO
--- NOTE | 2022-10-23 20:46 | PC.NURSE ---
pt to triage desk. pt states that they cannot wait any longer. pt states she was going to leave and follow up with UC in the AM. pt voiced an understanding of leaving without seeing provider.
== END 2022-10-23 20:46 | disposition left against medical advice (07) ==
PROVIDERS: Emergency Provider Emergency Medicine; PCP Emergency Medicine
DX: R10.9 Unspecified abdominal pain (principal)
CPT/HCPCS: 36415; 80053; 81003; 81025; 83690; 85025; 99199

== ENCOUNTER 2022-12-12 17:54 | Emergency (ER) | payer BC, SELFPAY ==
[2022-12-12 18:00] VITALS: BP 128/87; PULSE 81; RESP 16; TEMP 36.2; O2SAT 99
--- NOTE | 2022-12-12 18:42 | ED.URI ---
HPI - URI/Sore Throat General Chief Complaint: Upper Respiratory Infection Stated Complaint: CONGESTION/CHEST PAIN/NAUSEA/DIARRHEA/SOB Source: patient, RN notes reviewed and old records reviewed Mode of arrival: ambulatory Limitations: no limitations History of Present Illness HPI Narrative: 32-year-old female presents to [facility] with complaints of congestion body aches some nausea diarrhea is fevers chills 6 days duration. Patient states those symptoms resolved but she continues to some tightness to chest with some cough and exertion patient reports history of bronchitis in the past.Patient reports no fevers today but cough noted while in clinic. Patient has no tachypnea with color pink and respirations nonlabored with SAO2 100% on room air MD elicited complaint: cough and sore throat Treatments prior to arrival: cold medicine Related Data Allergies Allergy/AdvReac Type Severity Reaction Status Date / Time No Known Allergies Allergy Verified 12/12/22 18:07 Review of Systems Review of Systems: CONSTITUTIONAL: reports malaise, chills, sweats, or fever. EYES: Denies visual changes, redness, or discharge. ENT: Reports rhinorrhea, congestion, sinus pain,no otalgia or sore throat. CARDIOVASCULAR: Denies chest pain, palpitations, or edema. RESPIRATORY: Reports cough with some chest tightness? Denies dyspnea. GASTROINTESTINAL: Denies abdominal pain, nausea, vomiting, diarrhea SKIN: Denies rash or itching. MUSCULOSKELETAL:reports myalgia. NEUROLOGIC: Denies headache. All systems reviewed & are unremarkable except as noted in HPI and below PMFSH Past Medical History Medical History Hemorrhoid Obesity, unspecified Rectal bleeding Residual hemorrhoidal skin tags Rhinitis, nonallergic Viral wart, unspecified Surgical History Surgical History No significant past surgical history Family History Family History Father Hypertension Family history of hearing loss Sibling Hypertension Mother Family history of malignant neoplasm Other Family history of arthritis Social History Social History Smoking status: Never smoker Alcohol intake: current Gender identity (if verbalized by the patient): Female Comments At time of signature, agree with nursing past medical, surgical, social and family history. There is no relevant family history pertinent to the presenting complaint Exam Narrative: GENERAL: Well-appearing, well-nourished, and in no acute distress. HEAD: Normocephalic EYES: PERRLA, conjunctivae clear ENT: Nares clear, turbinates edematous and erythematous, clear discharge. Mucous membranes moist. TM pearly cotton with dull light reflex bilaterally; no tragal tenderness. Oropharynx erythematous without lesions. Tonsils not enlarged and without exudate, no drooling, no hoarseness, no trismus, uvula midline. NECK: Supple. No lymphadenopathy CHEST: Clear to auscultation, breath sounds equal. No wheezing, rhonchi, rales, or stridor. No respiratory distress, speaks in full sentences.cough noted nonproductive with SAO2 100% on room air HEART: Regular rate and rhythm. No murmur heard. SKIN: Warm, dry, no rash. NEURO: Alert and oriented x3. PSYCH: Normal mood and affect Course Course Emergency Course: Patient is aware of diagnosis, understands and agrees to treatment plan.? Anticipatory guidance given.? Patient agrees to follow-up as directed and is aware of reasons to seek care at the emergency department. Portions of this record may have been created with voice recognition software Level of Care: Express Care Visit Vital Signs Vital signs: Vital Signs Temperature 36.2 C L 12/12/22 18:00 Pulse Rate 81 12/12/22 18:00 Respiratory Rate 16 12/12/22 1
== END 2022-12-12 18:50 | disposition home or self-care (01) ==
PROVIDERS: Emergency Provider Registered Nurse
DX: J06.9 Acute upper respiratory infection, unspecified (principal); R05.9 Cough, unspecified; Z20.822 Contact with and (suspected) exposure to COVID-19; E66.9 Obesity, unspecified; Z68.38 Body mass index [BMI] 38.0-38.9, adult
CPT/HCPCS: 87426; 87804; 99213; C9803; G0463

== ENCOUNTER 2023-01-05 18:17 | Emergency (ER) | payer BC, SELFPAY ==
--- NOTE | ~2023-01-05 | CT_ITS ---
Non-contrast Head CT History: Seizure-like activity COMPARISON: 01/09/2021 Technique: Axial non-contrast imaging of the brain was performed. Dose reduction technique was used on this scan by utilizing automated exposure control and iterative reconstruction technique. The dose -length product (DLP) was 681.00 mGy-cm. Findings: There is no evidence of intracranial hemorrhage, mass lesion, or acute infarct. Brain par enchyma appears normal. The ventricles and subarachnoid spaces are normal in size. The calvarium ap pears normal. The visualized paranasal sinuses and mastoid air cells are clear. Impression: No significant abnormality seen. Reviewed, dictated and finalized at location . ING OFF WINDER Impression: No significant abnormality seen.
[2023-01-05 18:18] VITALS: BP 169/73; PULSE 90; RESP 18; O2SAT 98
[2023-01-05 18:29] VITALS: TEMP 36.8
--- NOTE | 2023-01-05 18:31 | ECG_ITS ---
Measurements Intervals [place] Rate: 86 P: 35 MI: 100 QRS: 5 QRSD: 88 T: 58 QT: 333 QTc: 400 Interpretive Statements SINUS RHYTHM WITH SINUS ARRHYTHMIA WITH SHORT MI INTERVAL NONSPECIFIC ST SEGMENT ABNORMALITY COMPARED TO ECG 01/09/2021 13:44:56 NO SIGNIFICANT CHANGE Electronically Signed On 01-07-2023 11:50:05 [employer] AND [employer]EVER[employer] ATTENDANT by Tomas Morataya M.D.
--- NOTE | 2023-01-05 18:45 | ED.AMS ---
HPI - Altered Mental Status General Chief Complaint: Altered Mental Status Stated Complaint: Spells of stuttering and dizziness Time Seen by Provider: 01/05/23 18:36 Source: patient, family and EMS Mode of arrival: EMS Limitations: no limitations History of Present Illness HPI narrative: Patient is 32 years old female came to the emergency room by ambulance because of spells of dizziness, migraine headache, stuttering and inability to talk but able to hear everything around her off and on for the last 3 weeks last for few seconds to few minutes. Patient lives with her parents who noticed that spell today and called 911. 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 Patient started taking true bio keto Gummies 3 weeks ago. She denies any fever, chills, nausea, vomiting, chest pain, shortness of breath, headache. She denies a smoking or using drugs but drinks occasionally. History of migraine headache. Patient was telling me about her symptoms and suddenly started blinking and stuttering and nodding her head that she is able to hear me and having trouble to get words out but able to speak clearly when she is able to do it. Lasted for 20 seconds. Patient denies any urine incontinence or biting her tongue. Related Data Allergies Allergy/AdvReac Type Severity Reaction Status Date / Time No Known Allergies Allergy Verified 12/12/22 18:07 Review of Systems Review of Systems: All systems reviewed & are unremarkable except as noted in HPI and below PMFSH Past Medical History Medical History Hemorrhoid Obesity, unspecified Rectal bleeding Residual hemorrhoidal skin tags Rhinitis, nonallergic Viral wart, unspecified Surgical History Surgical History No significant past surgical history Family History Family History Father Hypertension Family history of hearing loss Sibling Hypertension Mother Family history of malignant neoplasm Other Family history of arthritis Social History Social History Smoking status: Never smoker Alcohol intake: current Gender identity (if verbalized by the patient): Female Exam Narrative: General appearance: Well-developed, well-nourished Skin: Normal color Head: Normocephalic, nontraumatic Eyes: Clear conjunctiva ENT: Oropharynx normal, ears normal, nose normal Neck: Supple, nontender Chest and respiratory: Airway patent, no respiratory distress, no accessory muscle use Heart: Regular rate/rhythm Abdomen: Soft, nontender, no organomegaly, quiet bowel sounds Vascular: Normal peripheral pulses, normal capillary refill. Musculoskeletal: Normal range of motion, nontender back Neurologic: Alert and oriented ?3, UROLOGIC NURSE is normal as tested, no gross motor deficit Course Consultations Consultation #1: Dr. Pineda Agreed with outpatient follow-up Date: 01/05/23 Time: 20:47 Vital Signs Vital signs: Vital Signs Pulse Rate 90 01/05/23 18:18 Respiratory Rate 18 01/05/23 18:18 Blood Pressure 169/73 H 01/05/23 18:18 Pulse Oximetry 98 01/05/23 18:18 Oxygen Delivery Room Air 01/05/23 18:18 Temperature 36.8 C 01/05/23 18:29 Pulse Rate 77 01/05/23 20:51 Respiratory Rate 21 H 01/05/23 20:51 Blood Pressure 126/73 01/05/23 20:51 Pulse Oximetry 98 01/05/23 20:51 Oxygen Delivery Room Air 01/05/23 18:18 MDM - Altered Mental Status MDM Narrative Medical decision making narrative:
[2023-01-05 18:49] LABS: Glucose Point of Care 136 mg/dl (65-105)
[2023-01-05 19:22] LABS: Basophils Percent Auto 0.3 % (0.2-1.2); Eosinophils Absolute Auto 0.1 K/mm3 (0-0.3); Eosinophils Percent Auto 1.1 % (0-4.4); Hematocrit 42.7 % (37.0-47.0); Hemoglobin 14.4 g/dL (12.0-15.0); Immature Granulocyte Absolute 0.03 K/mm3 (0.00-0.031); Immature Granulocyte Percent A 0.3 % (0-0.5); Lymphocytes Absolute Auto 2.91 K/mm3 (0.9-3.2); Lymphocytes Percent Auto 26.5 % (18.3-44.2); Mean Corpuscular HGB Conc 33.7 g/dl (32-36); Mean Corpuscular Hemoglobin 27.9 pg (26-34); Mean Corpuscular Volume 82.6 fl (80-100); Mean Platelet Volume 11.6 fl (7.4-10.4); Monocytes Absolute Auto 0.7 K/mm3 (0.1-0.6); Monocytes Percent Auto 6.7 % (2.6-8.5); Neutrophils Absolute Auto 7.2 K/mm3 (1.3-6.7); Neutrophils Percent Auto 65.1 % (45.5-73.1); Platelet Count Result 210 k/mm3 (150-375); Red Blood Count 5.17 M/mm3 (4.2-5.4); Red Cell Distribution Width 12.4 % (11.5-14.5)
[2023-01-05 19:28] VITALS: BP 116/74; PULSE 70; RESP 22; O2SAT 98
[2023-01-05 19:31] VITALS: BP 113/70; PULSE 76; RESP 21; O2SAT 97
[2023-01-05 19:32] LABS: Alanine Aminotransferase 27 U/L (6-35); Albumin Level 4.2 g/dL (3.5-5.1); Alkaline Phosphatase 87 U/L (38-126); Anion Gap 8 mmol/L (8-16); Aspartate Amino Transferase 24 U/L (14-36); Bilirubin,Total 0.4 mg/dL (0.2-1.3); Blood Urea Nitrogen 16 mg/dL (7-17); Calcium 8.7 mg/dL (8.4-10.2); Carbon Dioxide 24 mmol/L (22-30); Chloride 108 mmol/L (98-107); Estimated Glomerular Filt Rate > 60; Glucose 129 mg/dL (65-110); Potassium 3.2 mmol/L (3.4-5.0); Sodium 140 mmol/L (137-145)
[2023-01-05 19:33] LABS: Lactic Acid Reflex 1.6 mmol/L (0.7-2.0)
[2023-01-05] MEDS: SODIUM CHLORIDE 0.9% IV 1,000 ML 999 ML IV CONT (19:34)
[2023-01-05 19:38] LABS: Appearance Urine Clear (Clear); Bilirubin Urine Negative (Negative); Blood Urine Trace-intact (Negative); Color Urine Yellow (Yellow); Glucose Urine UA Negative (Negative); Ketones Urine Negative (Negative); Leukocyte Esterase Ur Negative LEU/UL (Negative); Nitrate Urine Negative (Negative); Protein Urine Negative (Negative); Specific Grav Ur 1.015 (1.001-1.035); Urobilinogen Urine 0.2 mg/dL (<2.0); pH Urine 6.5 (5.0-9.0)
[2023-01-05] MEDS: LORazepam INJ (*CRX) 2 MG/ML VIAL 1 MG IV PUSH (19:49)
[2023-01-05 19:53] LABS: Bacteria Urine Trace /hpf; RBC Urine 0-2 /hpf (0-2); Squamous Epithelial Cell Urine Occasional /hpf (Few); WBC Urine 0-3 /hpf
[2023-01-05 20:00] LABS: Add Urine Microscopic? YES
[2023-01-05 20:01] VITALS: BP 121/74; PULSE 81; RESP 22; O2SAT 98
[2023-01-05 20:08] LABS: Pregnancy On Board Control Positive; Urine Pregnancy Test Negative
[2023-01-05 20:25] LABS: Amphetamine Screen Urine Negative (Negative); Barbiturate Screen Urine Negative (Negative); Benzodiazepines Screen Urine Negative (Negative); Cannabinoid Screen Urine Negative (Negative); Cocaine Screen Urine Negative (Negative); Methadone Screen Urine Negative (Negative); Opiate Screen Urine Negative (Negative); Phencyclidine Screen Urine Negative (Negative)
[2023-01-05 20:51] VITALS: BP 126/73; PULSE 77; RESP 21; O2SAT 98
== END 2023-01-05 20:50 | disposition home or self-care (01) ==
PROVIDERS: Physician Assistant; Emergency Provider Emergency Medicine
DX: R42 Dizziness and giddiness (principal); R51.9 Headache, unspecified; R47.82 Fluency disorder in conditions classified elsewhere; T50.995A Adverse effect of other drugs, medicaments and biological substances, initial encounter
CPT/HCPCS: 36415; 70450; 80053; 80307; 81001; 81025; 82948; 83605; 85025; 93005; 96361; 96374; 99284; J2060; J7030

== ENCOUNTER 2023-02-20 15:50 | Emergency (ER) | payer BC, SELFPAY ==
[2023-02-20 15:57] VITALS: BP 139/85; PULSE 81; RESP 20; TEMP 36.6; O2SAT 100
--- NOTE | 2023-02-20 15:57 | ED.GENADULT ---
HPI - General Adult General Chief complaint: Seizure Stated complaint: SEIZURES Time Seen by Provider: 02/20/23 16:00 Source: patient Mode of arrival: ambulatory Limitations: no limitations History of Present Illness HPI narrative: 32-year-old female presents with concern for ?seizures.? She reports she has been having these spasmodic episodes for about 2 months, she was seen in the emergency room at the beginning of January for these episodes and was told she may be having pseudoseizures, she was given a referral for Neurology but can not get in to see Neurology until beginning of March. Reports she had 3 of these episodes today the last 1 lasted about 30 minutes which is longer than it normally do. Her mother reports she gets very spastic, she at times cannot stand or move her arms. She remained lucid during these episodes. She denies any thunderclap headache, loss of consciousness, loss of bladder or bowel function. complaint: Spasming Related Data Home Medications Medication Instructions Recorded Confirmed No Home Medications 02/20/23 02/20/23 Allergies Allergy/AdvReac Type Severity Reaction Status Date / Time No Known Allergies Allergy Verified 02/20/23 16:09 Review of Systems Review of Systems: CONSTITUTIONAL: Denies chills, sweats, or fever. EYES: Denies visual changes ENT: Denies rhinorrhea, congestion CARDIOVASCULAR: Denies chest pain, palpitations, or edema. RESPIRATORY: Denies cough or dyspnea. GASTROINTESTINAL: Denies abdominal pain, nausea, vomiting, diarrhea. Denies loss of bowel from GENITOURINARY: Denies loss of bladder function MUSCULOSKELETAL: Denies back pain, joint pain, or myalgia. NEUROLOGIC: Reports spasming PSYCHIATRIC: Denies anxiety or depression. All systems reviewed & are unremarkable except as noted in HPI and below PMFSH Past Medical History Medical History Hemorrhoid Obesity, unspecified Rectal bleeding Residual hemorrhoidal skin tags Rhinitis, nonallergic Viral wart, unspecified Surgical History Surgical History No significant past surgical history Family History Family History Father Hypertension Family history of hearing loss Sibling Hypertension Mother Family history of malignant neoplasm Other Family history of arthritis Social History Social History Smoking status: Never smoker Alcohol intake: current Gender identity (if verbalized by the patient): Female Comments At time of signature, agree with nursing past medical, surgical, social and family history. There is no relevant family history pertinent to the presenting complaint Exam Narrative: GENERAL: In no acute distress. HEAD: Normocephalic, atraumatic. EYES: PERRLA, sclera clear. Extraocular eye movements not intact. ENT: Nares clear, turbinates pink, no rhinorrhea or epistaxis. Mucous membranes moist. Patient speech is affected by teeth chattering NECK: Supple. CHEST: No respiratory distress. HEART: Regular rate and rhythm. No murmur heard. Normal peripheral pulses. SKIN: Warm, dry, no visible rash. Musc: Patient's arms and legs appear spasmodic intermittently NEURO: Alert and oriented x3. Deficits noted 9 cranial nerves 3, 4, 5, 12 PSYCH: Normal mood and affect Course Course Emergency Course: Patient and mother is aware of, understands and agrees to be transferred to the emergency department, they request transfer to [place]. Advised patient that if EMS is called they will want to take her to the closest facility possible, patient wants to go to [place] so her family will provide transportation. Patient agrees to proceed directly to the emergency department. Portions of this record may have been created with voice recognition software Level of Care: Express Care Visit Vi
--- NOTE | 2023-02-20 16:32 | PC.NURSE ---
MOTHER REQUESTED TO BE TRANSFERRED TO [facility], REPORTS SHE WILL DRIVE HER THERE. PT REPORTS IT JUST FEELS LIKE EVERYTHING IS A SPASM. NO RESP DISTRESS OR ISSUES ARE NOTED. PT IS ABLE TO ANSWER ALL QUESTIONS APPROPRIATELY. REPORT CALLED TO [facility]. PT TO POV PER RN AND WC. PT IS AMBULATORY TO CAR WITHOUT DIFFICULTY.
== END 2023-02-20 16:25 | disposition home or self-care (01) ==
PROVIDERS: Emergency Provider Nurse Practitioner; PCP Family Medicine
DX: M62.838 Other muscle spasm (principal); E66.9 Obesity, unspecified; Z68.39 Body mass index [BMI] 39.0-39.9, adult
CPT/HCPCS: 99212; 99213; G0463

== ENCOUNTER 2023-04-14 07:22 | Outpatient (CLI) | payer BC, MEDICAID, SELFPAY ==
--- NOTE | ~2023-04-14 | MR_ITS ---
EXAMINATION: MR brain/brain stem wo con DATE: 04/14/2023 08:31 INDICATION: seizure like activity TECHNIQUE: Magnetic resonance imaging (MRI) of the brain and brainstem was performed without intraven ous contrast. Sequences included sagittal and axial T1-weighted FSE, axial diffusion-weighted FS EPI, axial T2*-weighted GRE, axial T2-weighted FLAIR Propeller, axial T2-weighted Propeller, coronal T2-w eighted FLAIR, and coronal T1-weighted 3D FSPGR. Apparent diffusion coefficient (ADC) maps were creat ed. COMPARISON: CT brain 01/05/2023. FINDINGS: No abnormal restricted diffusion to suggest acute ischemic infarct. No MRI evidence of hemorrhage or extra-axial collection. No suspicious foci of susceptibility to suggest prior intraparenchymal hemorr jalen. Normal white matter signal. No evidence of advanced or lobar predominant parenchymal volume los s. The basilar cisterns are patent. Flow voids are preserved. Paranasal sinuses are within normal allen its. Globes and orbital contents are within normal limits. IMPRESSION: Normal MR brain findings. Reviewed, dictated and finalized at location K. IMPRESSION: Normal MR brain findings.
== END 2023-04-14 07:23 | disposition home or self-care (01) ==
PROVIDERS: PCP Family Medicine; Visit Provider Student in an Organized Health Care Education/Training Program
DX: R56.9 Unspecified convulsions (principal)
CPT/HCPCS: 70551

== ENCOUNTER 2023-09-13 00:58 | Emergency (ER) | payer OTHER, SELFPAY ==
[2023-09-13 01:02] VITALS: BP 123/72; PULSE 73; RESP 18; TEMP 37.1; O2SAT 98
--- NOTE | 2023-09-13 02:13 | PC.NURSE ---
Pt reports that she has a tonsilectomy on Saturday. States she has been drinking water, but thinks that she is dehydrated. Reports feeling weak.
[2023-09-13 03:04] LABS: Basophils Absolute Auto 0.1 K/mm3 (0.0-0.1); Basophils Percent Auto 0.4 % (0.2-1.2); Eosinophils Absolute Auto 0.1 K/mm3 (0-0.3); Eosinophils Percent Auto 0.7 % (0-4.4); Hematocrit 41.2 % (37.0-47.0); Hemoglobin 13.8 g/dL (12.0-15.0); Immature Granulocyte Absolute 0.04 K/mm3 (0.00-0.031); Immature Granulocyte Percent A 0.3 % (0-0.5); Lymphocytes Absolute Auto 4.25 K/mm3 (0.9-3.2); Lymphocytes Percent Auto 31.8 % (18.3-44.2); Mean Corpuscular HGB Conc 33.5 g/dl (32-36); Mean Corpuscular Hemoglobin 28.1 pg (26-34); Mean Corpuscular Volume 83.9 fl (80-100); Monocytes Percent Auto 7.2 % (2.6-8.5); Neutrophils Percent Auto 59.6 % (45.5-73.1); Platelet Count Result 217 k/mm3 (150-375); Red Blood Count 4.91 M/mm3 (4.2-5.4); Red Cell Distribution Width 12.4 % (11.5-14.5); White Blood Count 13.4 K/mm3 (4.5-10.0)
[2023-09-13 03:14] LABS: Alanine Aminotransferase 29 U/L (6-35); Albumin Level 4.4 g/dL (3.5-5.1); Alkaline Phosphatase 66 U/L (38-126); Anion Gap 8 mmol/L (8-16); Aspartate Amino Transferase 31 U/L (14-36); Bilirubin,Total 0.6 mg/dL (0.2-1.3); Blood Urea Nitrogen 9 mg/dL (7-17); Calcium 8.7 mg/dL (8.4-10.2); Carbon Dioxide 27 mmol/L (22-30); Chloride 101 mmol/L (98-107); Estimated CRCL calculation 126 ml/min; Estimated Glomerular Filt Rate > 60; Glucose 125 mg/dL (65-110); Potassium 3.3 mmol/L (3.4-5.0); Sodium 136 mmol/L (137-145)
[2023-09-13 03:26] LABS: Appearance Urine Clear (Clear); Bilirubin Urine Negative (Negative); Blood Urine Negative (Negative); Color Urine Yellow (Yellow); Glucose Urine UA Negative (Negative); Ketones Urine Negative (Negative); Leukocyte Esterase Ur Negative LEU/UL (Negative); Nitrate Urine Negative (Negative); Protein Urine Negative (Negative); Specific Grav Ur 1.004 (1.001-1.035); Urobilinogen Urine 0.2 mg/dL (<2.0); pH Urine 6.5 (5.0-9.0)
[2023-09-13] MEDS: SODIUM CHLORIDE 0.9% IV 1,000 ML 999 ML IV CONT (03:26)
[2023-09-13 03:43] LABS: Magnesium 2.1 mg/dL (1.6-2.3)
--- NOTE | 2023-09-13 03:43 | ED.GENADULT ---
HPI - General Adult General Chief complaint: Unspecified Stated complaint: Im dehyrdrated Time Seen by Provider: 09/13/23 02:43 History of Present Illness HPI narrative: Patient 33-year-old female who presents the emergency department with chief complaint of feeling dehydrated. Patient reports that she just had a tonsillectomy done at [place] and has been drinking fluids but feels as though she is dehydrated. The patient reports has had some cramping in her muscles and feels tired. The patient reports that her pain medication has been helping her pain patient denies fever denies trismus. Related Data Home Medications Medication Instructions Recorded Confirmed magnesium 200 mg tablet 200 mg PO DAILY 03/05/23 prenat.vits,chelita,cpr-oobi-mmcxh 1 tablet PO DAILY 03/05/23 ubrogepant 100 mg tablet (Ubrelvy) 100 mg PO ONCE 03/05/23 Allergies Allergy/AdvReac Type Severity Reaction Status Date / Time No Known Allergies Allergy Verified 03/05/23 09:03 Review of Systems Review of Systems: A 10 system review of systems was completed on the patient and is negative except for what is stated in the HPI. Nursing and ancillary documentation was reviewed. [facility] Past Medical History Medical History Hemorrhoid Obesity, unspecified Rectal bleeding Residual hemorrhoidal skin tags Rhinitis, nonallergic Viral wart, unspecified Surgical History Surgical History Hx of nasal septoplasty No significant past surgical history Family History Family History Father Hypertension Family history of hearing loss Sibling Hypertension Mother Family history of malignant neoplasm Other Family history of arthritis Social History Social History Smoking status: Never smoker Alcohol intake: current Alcohol use details: rarely Substance use: never Substance use type: does not use Lack of Transportation: No Lack of Food: Sometimes True Current Housing: I Have Housing Concerned About Future Housing: No Difficulty Paying Gas/Electric Bills: YES Difficulty Paying for Meds: No Currently Unemployed: No Education: Bachelor's Degree Difficulty w/ Childcare or Family Care: No Gender identity (if verbalized by the patient): Female Exam Narrative: GENERAL: Well-appearing, well-nourished, and in no acute distress. HEAD: Normocephalic, atraumatic. EYES: PERRLA and EOMI. ENT: Nares clear, no rhinorrhea or epistaxis. Mucous membranes moist. Eschars present where the tonsils were removed NECK: Supple. CHEST: Clear to auscultation. No respiratory distress. HEART: Regular rate and rhythm. No murmur heard. Normal peripheral pulses. ABDOMEN: Soft, nontender, nondistended, normal active bowel sounds. EXTREMITIES: Normal range of motion. No edema. SKIN: Warm, dry, no rash. NEURO: No focal deficits. Alert and oriented x3. PSYCH: Normal mood and affect. Course Vital Signs Vital signs: Vital Signs Temperature 37.1 C 09/13/23 01:02 Pulse Rate 73 09/13/23 01:02 Respiratory Rate 18 09/13/23 01:02 Blood Pressure 123/72 09/13/23 01:02 Pulse Oximetry 98 09/13/23 01:02 Oxygen Delivery Room Air 09/13/23 01:02 Temperature 37.1 C 09/13/23 01:02 Pulse Rate 73 09/13/23 01:02 Respiratory Rate 18 09/13/23 01:02 Blood Pressure 123/72 09/13/23 01:02 Pulse Oximetry 98 09/13/23 01:02 Oxygen Delivery Room Air 09/13/23 01:02 Medical Decision Making MDM Narrative Medical decision making narrative: Differential diagnosis dehydration, electrolyte abnormality, Patient received normal saline boluses in the emergency department electrolytes are within normal limits Vital Signs Vital Signs: Vital Signs Temperature 37.
[2023-09-13 03:45] LABS: Add Urine Microscopic? NO
--- NOTE | 2023-09-13 04:00 | PC.NURSE ---
Ok per ERP for pt to take her home pain medication
[2023-09-13 05:14] VITALS: BP 138/74; PULSE 78; RESP 18; O2SAT 98
== END 2023-09-13 05:16 | disposition home or self-care (01) ==
PROVIDERS: Emergency Provider Emergency Medicine; PCP Family Medicine
DX: E86.0 Dehydration (principal); Z98.890 Other specified postprocedural states; E66.9 Obesity, unspecified; Z68.38 Body mass index [BMI] 38.0-38.9, adult
CPT/HCPCS: 36415; 80053; 81003; 83735; 85025; 96360; 99283; J7030

== ENCOUNTER 2023-10-22 10:40 | Emergency (ER) | payer OTHER, SELFPAY ==
--- NOTE | ~2023-10-22 | XR_ITS ---
EXAMINATION: XR chest 2V 10/22/2023 11:59 INDICATION: Cough and chest pressure for 3 weeks PROCEDURE: 2 view chest COMPARISON: 01/09/2021 FINDINGS: The lungs are clear. The cardiomediastinal silhouette is within normal limits. There are no pleural effusions. There is no pneumothorax suspected. IMPRESSION: 1: NO ACUTE CARDIOPULMONARY DISEASE. Reviewed, dictated and finalized at location L. [employer]IAN [employer]
[2023-10-22 11:41] VITALS: BP 125/92; PULSE 98; RESP 16; TEMP 36.6; O2SAT 99
--- NOTE | 2023-10-22 11:57 | ED.URI ---
HPI - URI/Sore Throat General Chief Complaint: Upper Respiratory Infection Stated Complaint: Cough;Congestion;Chest pain Time Seen by Provider: 10/22/23 11:58 Source: patient, RN notes reviewed and old records reviewed Mode of arrival: ambulatory Limitations: no limitations History of Present Illness HPI Narrative: 33-year-old female who presents to [facility] with complaints of 3 week duration of cough which is nonproductive. Patient reports that she has been taking allergy medication and also some DayQuil with no improvement.Patient reports that she has some chest pressure noted with her cough and some body aches, denies any known fevers chills or sweats. Patient reports that she has been COVID vaccinated but has not had flu shot. MD elicited complaint: cough and other (post nasal drainage) Pertinent past history: sinusitis and other (septoplasty) Onset (ago): week(s) (3) Able to tolerate fluids by mouth: Yes Treatments prior to arrival: other (allergy medication and DayQuil) Related Data Home Medications Medication Instructions Recorded Confirmed magnesium 200 mg tablet 200 mg PO DAILY 03/05/23 prenat.vits,chelita,oah-uoch-ibris 1 tablet PO DAILY 03/05/23 ubrogepant 100 mg tablet (Ubrelvy) 100 mg PO ONCE 03/05/23 ergocalciferol (vitamin D2) 1,250 1,250 mcg PO DAILY 10/22/23 10/22/23 mcg (50,000 unit) capsule Allergies Allergy/AdvReac Type Severity Reaction Status Date / Time No Known Allergies Allergy Verified 10/22/23 11:49 Review of Systems Review of Systems: CONSTITUTIONAL: Denies malaise, chills, sweats, or fever. EYES: Denies visual changes, redness, or discharge. ENT: Reports some rhinorrhea, congestion, sinus pain,no otalgia and no sore throat. CARDIOVASCULAR: Denies chest pain, palpitations, or edema.states some chest pressure with cough RESPIRATORY: Reports cough.? Denies dyspnea. GASTROINTESTINAL: Denies abdominal pain, nausea, vomiting, diarrhea SKIN: Denies rash or itching. MUSCULOSKELETAL: Reports myalgia. NEUROLOGIC: Denies headache. All systems reviewed & are unremarkable except as noted in HPI and below PMFSH Past Medical History Medical History Hemorrhoid Obesity, unspecified Rectal bleeding Residual hemorrhoidal skin tags Rhinitis, nonallergic Viral wart, unspecified Surgical History Surgical History Hx of nasal septoplasty No significant past surgical history Family History Family History Father Hypertension Family history of hearing loss Sibling Hypertension Mother Family history of malignant neoplasm Other Family history of arthritis Social History Social History Smoking status: Never smoker Alcohol intake: current Alcohol use details: rarely Substance use: never Substance use type: does not use Lack of Transportation: No Lack of Food: Sometimes True Current Housing: I Have Housing Concerned About Future Housing: No Difficulty Paying Gas/Electric Bills: YES Difficulty Paying for Meds: No Currently Unemployed: No Education: Bachelor's Degree Difficulty w/ Childcare or Family Care: No Gender identity (if verbalized by the patient): Female Comments At time of signature, agree with nursing past medical, surgical, social and family history. There is no relevant family history pertinent to the presenting complaint Exam Narrative: GENERAL: Well-appearing, well-nourished, and in no acute distress. HEAD: Normocephalic EYES: PERRLA, conjunctivae clear ENT: Nares clear, turbinates edematous and erythematous, clear discharge. Mucous membranes moist. TM pearly cotton with dull light reflex bilaterally; no tragal tenderness. Oropharynx erythematous without lesions. Tonsils not present and throat witho
== END 2023-10-22 12:17 | disposition home or self-care (01) ==
PROVIDERS: Emergency Provider Registered Nurse; PCP Family Medicine
DX: J32.9 Chronic sinusitis, unspecified (principal); R05.1 Acute cough
CPT/HCPCS: 71046; 99213; G0463

== ENCOUNTER 2024-05-05 16:05 | Emergency (ER) | payer OTHER, SELFPAY ==
--- NOTE | ~2024-05-05 | CT_ITS ---
EXAMINATION: CT brain wo con DATE: 05/05/2024 17:28 INDICATION: R eye spasms/pain/FAM . TECHNIQUE: Computed tomography (CT) of the head was performed without intravenous contrast. The mA wa s adjusted according to patient size. Iterative reconstruction technique was employed. The dose-lengt h product was 681.00 mGy-cm. COMPARISON: None. FINDINGS: No acute intracranial hemorrhage or extra-axial fluid collection. No hydrocephalus, mass, or herniation. No acute ischemic infarct. Unremarkable dural venous sinus attenuation. No acute osseous abnormality. The aerated spaces are clear. IMPRESSION: No acute intracranial process. Reviewed, dictated and finalized at location K.
[2024-05-05 16:13] VITALS: BP 127/89; PULSE 92; RESP 16; TEMP 36.5; O2SAT 97
[2024-05-05] MEDS: FLUORESCEIN SOD 1 MG/STRIP EACH EYE (17:36)
[2024-05-05] MEDS: TETRACAINE HCL 0.5% OPHTH SOLN 4 ML BTL 1 DROP (17:36)
--- NOTE | 2024-05-05 17:40 | ED.EYEPROB ---
HPI - Eye Problem General Chief complaint: Eye Problems Stated complaint: right eye pain Time Seen by Provider: 05/05/24 17:11 Source: patient Mode of arrival: ambulatory Limitations: no limitations History of Present Illness HPI Narrative: Patient is a 33-year-old female who presents the ED with report of right eye pain. Patient reports approximately 1.5 hours ago she developed pain in her right eye. She described as though she was having muscle spasms in her right eye. States it is difficult to open her right eye at that time. Denies changes in her vision, but states she was unable to see due to being unable to open the eye. States pain radiated into R side of head. Spasms have been intermittent since then, lasting 2-10 minutes at a time. Denies aggravating factors. Patient denies any other complaints. She did not take anything for the pain. Denies history of similar episodes. She does wear eye glasses. Last eye exam was 1 year ago. States 3 weeks ago she did have spasms in her right thumb which resolved on its own. Related Data Home Medications Medication Instructions Recorded Confirmed magnesium 200 mg tablet 200 mg PO DAILY 03/05/23 prenat.vits,chleita,kye-omgg-oumru 1 tablet PO DAILY 03/05/23 ubrogepant 100 mg tablet (Ubrelvy) 100 mg PO ONCE 03/05/23 ergocalciferol (vitamin D2) 1,250 1,250 mcg PO DAILY 10/22/23 10/22/23 mcg (50,000 unit) capsule Allergies Allergy/AdvReac Type Severity Reaction Status Date / Time No Known Allergies Allergy Verified 05/05/24 16:20 Review of Systems Review of Systems: CONSTITUTIONAL: Denies fever, chills, or sweats. ENT: See HPI CARDIOVASCULAR: Denies chest pain RESPIRATORY: Denies cough or dyspnea. GASTROINTESTINAL: Denies abdominal pain, nausea, vomiting, or diarrhea. NEUROLOGIC: See HPI. All systems reviewed & are unremarkable except as noted in HPI and below PMFSH Past Medical History Medical History Hemorrhoid Obesity, unspecified Rectal bleeding Residual hemorrhoidal skin tags Rhinitis, nonallergic Viral wart, unspecified Surgical History Surgical History Hx of nasal septoplasty No significant past surgical history Family History Family History Father Hypertension Family history of hearing loss Sibling Hypertension Mother Family history of malignant neoplasm Other Family history of arthritis Social History Social History Smoking status: Never smoker Alcohol intake: current Alcohol use details: rarely Substance use: never Substance use type: does not use Lack of Transportation: No Lack of Food: Sometimes True Current Housing: I Have Housing Concerned About Future Housing: No Difficulty Paying Gas/Electric Bills: YES Difficulty Paying for Meds: No Currently Unemployed: No Education: Bachelor's Degree Difficulty w/ Childcare or Family Care: No Gender identity (if verbalized by the patient): Female Exam Narrative: GENERAL: Well appearing, morbidly obese with BMI of 41.0, non-toxic, in no acute distress. HEAD: Normocephalic, atraumatic. EYES: PERRL/EOMI, conjunctiva clear. No nystagmus. Some minimal spasming noted with far lateral EOM. RESPIRATORY: Airway patent, respirations nonlabored. Clear to auscultation bilaterally, no rales, rhonchi, wheezing. CARDIOVASCULAR: Regular rate and rhythm MUSCULOSKELETAL: Moves all extremities. No gross deformities. SKIN: Warm, dry, normal color. NEURO: A&O X3. Speech clear. Cranial nerves II-XII grossly intact. Steady gait. No ataxic movements. strength 5/5 in upper and lower extremities bilaterally. No focal deficits. PSYCHIATRIC: Appropriate mood and affect. Normal interaction. Course Vital Signs Vital signs: Vi
[2024-05-05] MEDS: CYCLOBENZAPRINE HCL 5 MG TABLET PO (19:06)
[2024-05-05] MEDS: levETIRAcetam 500 MG TABLET 1000 MG PO (19:06)
[2024-05-05 19:09] VITALS: BP 121/74; PULSE 87; RESP 19; O2SAT 98
== END 2024-05-05 19:10 | disposition home or self-care (01) ==
PROVIDERS: Emergency Provider Physician Assistant; PCP Family Medicine
DX: H57.11 Ocular pain, right eye (principal); H52.531 Spasm of accommodation, right eye; S05.01XA Injury of conjunctiva and corneal abrasion without foreign body, right eye, initial encounter; G40.909 Epilepsy, unspecified, not intractable, without status epilepticus; T42.6X6A Underdosing of other antiepileptic and sedative-hypnotic drugs, initial encounter; Z91.128 Patient's intentional underdosing of medication regimen for other reason; E66.01 Morbid (severe) obesity due to excess calories; Z68.41 Body mass index [BMI] 40.0-44.9, adult; Z79.899 Other long term (current) drug therapy; X58.XXXA Exposure to other specified factors, initial encounter
CPT/HCPCS: 70450; 99284; A9270